=== PATIENT | male | born 1995 | race Caucasian/White ===

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

== ENCOUNTER 2017-08-07 03:26 | Emergency (ER) | payer SELFPAY | END 2017-08-07 04:11 | disposition home or self-care (01) | LOC: ER 03:26 | DX: L98.8 Other specified disorders of the skin and subcutaneous tissue (principal); S90.812A Abrasion, left foot, initial encounter; S90.811A Abrasion, right foot, initial encounter; Z88.1 Allergy status to other antibiotic agents; X58.XXXA Exposure to other specified factors, initial encounter; Y93.89 Activity, other specified; Y92.89 Other specified places as the place of occurrence of the external cause; Y99.8 Other external cause status | CPT/HCPCS: 36415; 86592; 99283 ==

== ENCOUNTER 2017-12-12 16:21 | Emergency (ER) | payer SELFPAY ==
[~2017-12-12] VITALS: Ht 170.2 cm; Wt 59.0 kg
[~2017-12-12 16:21] MED LIST: DOXY100T PO; PERM60CR11 TP
[2017-12-12 16:41] VITALS: BP 129/75
--- NOTE | 2017-12-12 17:21 | PHYS DOC ---
Past Medical History Past Medical History: No Pertinent History Past Surgical History: Other Additional Past Surgical Histo: RT ARM SURG Alcohol Use: Occasionally Drug Use: None Adult General Chief Complaint Chief Complaint: EYE PROBLEMS HPI HPI Patient is a 22 year old Male who presents with left Neck tenderness that she to touch because of a recent lymph node for the last 3 days. Patient also has a left eyebrow red raised bump that is painful for last 3 days. Patient states that he did try to squeeze it to see if there was a pimple but nothing came out. Patient states that it itches in that area. Patient denies a sore throat or cough but states that for the whole month of October every night at 7 PM he 'll began having a fever and vomiting and had body aches or weaknesses. Patient states he is feeling better now though. Patient states that ever since October use been coughing up green mucus. Patient states he does not think he' s been running a fever. Patient has not been taking his temperature at home. Review of Systems Review of Systems Constitutional: Fever or chills for the whole of October.[] Eyes: Denies change in visual acuity, redness, or eye pain [] HENT: Denies nasal congestion or sore throat [] Respiratory: Productive cough. Denies shortness of breath [] Cardiovascular: No additional information not addressed in HPI [] GI: Denies abdominal pain, nausea, vomiting, bloody stools or diarrhea [] : Denies dysuria or hematuria [] Musculoskeletal: Denies back pain or joint pain [] Integument: Red raised, itchy bump to left upper eyebrow. Denies rash or skin lesions [] Neurologic: Denies headache, focal weakness or sensory changes [] All other systems were reviewed and found to be within normal limits, except as documented in this note. Allergies Allergies Allergies Coded Allergies Type Severity Reaction Last Updated Verified bacitracin Allergy Intermediate 12/15/15 Yes neomycin Allergy Intermediate 12/15/15 Yes polymyxin B Allergy Intermediate 12/15/15 Yes Physical Exam Physical Exam Constitutional: Well developed, well nourished, no acute distress, non-toxic appearance. [] HENT: Normocephalic, atraumatic, bilateral external ears normal, oropharynx moist, no oral exudates, nose normal. [] Eyes: PERRLA, EOMI, conjunctiva normal, no discharge. [] Neck: Normal range of motion, no tenderness, supple, no stridor. [] Cardiovascular:Heart rate regular rhythm, no murmur [] Lungs & Thorax: Bilateral breath sounds clear to auscultation [] Abdomen: Bowel sounds normal, soft, no tenderness, no masses, no pulsatile masses. [] Skin: Warm, dry, no erythema, no rash. [] Back: No tenderness, no CVA tenderness. [] Extremities: No tenderness, no cyanosis, no clubbing, ROM intact, no edema. [] Neurologic: Alert and oriented X 3, normal motor function, normal sensory function, no focal deficits noted. [] Psychologic: Affect normal, judgement normal, mood normal. [] Current Patient Data Vital Signs Vital Signs Date Time Temp Pulse Resp B/P (MAP) Pulse Ox O2 Delivery O2 Flow Rate FiO2 12/12/17 16:41 98.1 75 18 129/75 (93) 100 Room Air 98.1 Lab Values Laboratory Tests Test 12/12/17 17:15 White Blood Count 6.8 x10^3/uL (4.0-11.0) Red Blood Count 4.92 x10^6/uL (4.30-5.70) Hemoglobin 15.1 g/dL (13.0-17.5) Hematocrit 42.8 % (39.0-53.0) Mean Corpuscular Volume 87 fL (79-100) Mean Corpuscular Hemoglobin 31 pg (25-35) Mean Corpuscular Hemoglobin Concent 35 g/dL (31-37) Red Cell Distribution Width 13.7 % (11.5-14.5) Platelet Count 257 x10^3/uL (140-400) Neutrophils (%) (Auto) 59 % (31-73) Lymphocytes (%) (Auto) 29 % (24-48) Monocytes (%) (Auto) 9 % (0-9) Eosinophils (%) (Auto) 2 % (0-3) Basophils (%) (Auto) 1 % (0-3) Neutrophils # (Auto) 4.0 x10^3uL (1.8-7.7) Lymphocytes # (Auto) 2.0 x10^3/uL (1.0-4.8) Monocytes # (Auto) 0.6 x10^3/uL (0.0-1.1) Eosinophils # (Auto) 0.1 x10^3/uL (0.0-0.7) Basophils # (Auto) 0.0 x10^3/uL (0.0-0.2) Laboratory Tests 12/12/17 17:15 EKG EKG [] Radiology/Procedures Radiology/Procedures Chest xray Impressions: No acute findings and read by Dr Boland Course & Med Decision Making Course & Med Decision Making Patient is a 22 year old Male who presents with left Neck tenderness that she to touch because of a recent lymph node for the last 3 days. Patient also has a left eyebrow red raised bump that is painful for last 3 days. Patient states that he did try to squeeze it to see if there was a pimple but nothing came out. Patient states that it itches in that area. Patient denies a sore throat or cough but states that for the whole month of October every night at 7 PM he 'll began having a fever and vomiting and had body aches or weaknesses. Patient states he is feeling better now though. Patient states that ever since October use been coughing up green mucus. Patient states he does not think he' s been running a fever. Patient has not been taking his temperature at home. Patient's throat is pink but without exudates. Lungs are clear in upper lobes but diminished in lower lobes. Patient states that he does smoke marijuana and cigarettes. Patient states that he does drink alcohol but then moderation. Patient states he is allergic to Neosporin. I did have Dr. Boland take a look at this patient and she states that to order some bacitracin ointment to put on the left eye bump nodule as it appears to be a folliculitis. Patient is also getting a chest x-ray and a CBC to check for infection. Patient is alert and oriented. Patient speaks in full sentences and in no respiratory distress. Heart Rate regular without murmur. Blood work is unremarkable. Chest x ray was read by Dr Boland and shows no acute findings. Patient is discharged home and to follow up with his primary care as soon as possible. [] Dragon Disclaimer Dragon Disclaimer This electronic medical record was generated, in whole or in part, using a voice recognition dictation system. Departure Departure Impression: Primary Impression: Folliculitis Disposition: HOME, SELF-CARE Condition: STABLE Referrals: NO PCP (PCP) Patient Instructions: Folliculitis Additional Instructions: Follow up with your primary care physician. Use medications as prescribed. Scripts Mupirocin (MUPIROCIN OINTMENT) 22 Gm Oint...g. 1 ABBY TP TID for WOUND CARE, #1 TUBE Prov: ORAL BORREGO APRN 12/12/17 ORAL BORREGO APRN Dec 12, 2017 17:21
[2017-12-12 17:29] LABS: BASO % 1 % (0-3); EOS # 0.1 x10^3/uL (0.0-0.7); EOS % 2 % (0-3); HEMATOCRIT 42.8 % (39.0-53.0); HEMOGLOBIN 15.1 g/dL (13.0-17.5); LYMPH % 29 % (24-48); MEAN CORPUSCULAR HEMOGLOBIN 31 pg (25-35); MEAN CORPUSCULAR HGB CONC 35 g/dL (31-37); MEAN CORPUSCULAR VOLUME 87 fL (79-100); MONO # 0.6 x10^3/uL (0.0-1.1); MONO % 9 % (0-9); NEUT % 59 % (31-73); PLATELET COUNT 257 x10^3/uL (140-400); RED BLOOD COUNT 4.92 x10^6/uL (4.30-5.70); RED CELL DISTRIBUTION WIDTH 13.7 % (11.5-14.5); WHITE BLOOD COUNT 6.8 x10^3/uL (4.0-11.0)
[2017-12-12] MEDS ORDERED: MUPI22OI2 TP (17:48)
--- NOTE | 2017-12-12 18:10 | RAD ---
CHEST PA LATERAL History: GREEN MUCOUS PRODUCTION. Comparison: None. Heart size: Within normal limits. Sophia/mediastinum: Within normal limits Lungs: No focal airspace consolidation. Pleura: No evidence of pleural effusion. Pneumothorax: None visualized Bones: Regional skeleton appears grossly intact. Miscellaneous: None Impression: No acute radiographic findings. Electronically signed by: Larry Virk MD (12/12/2017 6:07 PM) [facility]
[2017-12-12] MEDS ORDERED: MUPIROCIN 2 % TOPICAL CREAM 15GM TUBE. TP ONE (18:15)
== END 2017-12-12 18:01 | disposition home or self-care (01) ==
LOC: ER 16:21
DX: L73.8 Other specified follicular disorders (principal); R50.9 Fever, unspecified; R11.10 Vomiting, unspecified; R22.0 Localized swelling, mass and lump, head; F17.210 Nicotine dependence, cigarettes, uncomplicated; Z88.2 Allergy status to sulfonamides
CPT/HCPCS: 36415; 71046; 85025; 99285-25

== ENCOUNTER 2018-07-06 21:15 | Emergency (ER) | payer SELFPAY ==
[~2018-07-06] VITALS: Ht 170.2 cm; Wt 61.2 kg
[~2018-07-06 21:15] MED LIST changes: +MUPI22OI2 TP
[2018-07-06 21:44] VITALS: BP 120/65
[2018-07-06] MEDS ORDERED: AMOXICILLIN/K CLAV 875/125MG TABLET. PO ONE (22:00)
[2018-07-06] MEDS ORDERED: MUPIROCIN 2 % TOPICAL CREAM 30GM TUBE. TP ONE (22:00)
[2018-07-06] MEDS ORDERED: IBUPROFEN 200 MG TABLET. PO ONE (22:15)
[2018-07-06] MEDS ORDERED: DIPHTH,PERTUSS(ACELL),TET TOX 0.5 ML DISP.SYRIN. VAX IM ONE (22:15)
[2018-07-06] MEDS ORDERED: AMOX1TAB61 PO (22:29)
[2018-07-06] MEDS ORDERED: [UNRECOGNIZED DRUG - CODE] IM (22:29)
[2018-07-06] MEDS ORDERED: MUPI15CR8 TP (22:29)
--- NOTE | 2018-07-06 22:29 | PHYS DOC ---
Past Medical History Past Medical History: No Pertinent History Past Surgical History: Other Additional Past Surgical Histo: RT ARM SURG Alcohol Use: Occasionally Drug Use: None Adult General Chief Complaint Chief Complaint: ANIMAL BITE HPI HPI Patient is a 23 year old [f__sex] who presents with [] Review of Systems Review of Systems Constitutional: Denies fever or chills [] Eyes: Denies change in visual acuity, redness, or eye pain [] HENT: Denies nasal congestion or sore throat [] Respiratory: Denies cough or shortness of breath [] Cardiovascular: No additional information not addressed in HPI [] GI: Denies abdominal pain, nausea, vomiting, bloody stools or diarrhea [] : Denies dysuria or hematuria [] Musculoskeletal: Denies back pain or joint pain [] Integument: Denies rash or skin lesions [] Neurologic: Denies headache, focal weakness or sensory changes [] Endocrine: Denies polyuria or polydipsia [] All other systems were reviewed and found to be within normal limits, except as documented in this note. Current Medications Current Medications Current Medications Medications (Trade) Dose Ordered Sig/Florence Start Time Stop Time Status Last Admin Dose Admin Amoxicillin/ Clavulanate Potassium (Augmentin 875/ 125mg) 1 tab 1X ONCE 07/06/18 22:00 07/06/18 22:01 DC Diphtheria/ Tetanus/Acell Pertussis (Boostrix) 0.5 ml ONCE ONCE 07/06/18 22:15 07/06/18 22:16 DC Ibuprofen (Motrin) 600 mg 1X ONCE 07/06/18 22:15 07/06/18 22:16 DC Mupirocin (Bactroban) 1 cisco 1X ONCE 07/06/18 22:00 07/06/18 22:01 DC Rabies Immune Globulin (Imogam Rabies) 8.2 ml ONCE ONCE 07/06/18 22:30 07/06/18 22:31 Rabies Vaccine Human Diploid Cell (Imovax Rabies 2.5 Unit / ml) 1 ml ONCE ONCE 07/06/18 22:30 07/06/18 22:31 Allergies Allergies Allergies Coded Allergies Type Severity Reaction Last Updated Verified bacitracin Allergy Intermediate 12/15/15 Yes neomycin Allergy Intermediate 12/15/15 Yes polymyxin B Allergy Intermediate 12/15/15 Yes Physical Exam Physical Exam Constitutional: Well developed, well nourished, no acute distress, non-toxic appearance. [] HENT: Normocephalic, atraumatic, bilateral external ears normal, oropharynx moist, no oral exudates, nose normal. [] Eyes: PERRLA, EOMI, conjunctiva normal, no discharge. [] Neck: Normal range of motion, no tenderness, supple, no stridor. [] Cardiovascular:Heart rate regular rhythm, no murmur [] Lungs & Thorax: Bilateral breath sounds clear to auscultation [] Abdomen: Bowel sounds normal, soft, no tenderness, no masses, no pulsatile masses. [] Skin: Warm, dry, no erythema, no rash. [] Back: No tenderness, no CVA tenderness. [] Extremities: No tenderness, no cyanosis, no clubbing, ROM intact, no edema. [] Neurologic: Alert and oriented X 3, normal motor function, normal sensory function, no focal deficits noted. [] Psychologic: Affect normal, judgement normal, mood normal. [] Current Patient Data Vital Signs Vital Signs Date Time Temp Pulse Resp B/P (MAP) Pulse Ox O2 Delivery O2 Flow Rate FiO2 07/06/18 21:44 98.6 103 18 120/65 (83) 100 Room Air 98.6 EKG EKG [] Radiology/Procedures Radiology/Procedures [] Course & Med Decision Making Course & Med Decision Making Pertinent Labs and Imaging studies reviewed. (See chart for details) [] Dragon Disclaimer Dragon Disclaimer This electronic medical record was generated, in whole or in part, using a voice recognition dictation system. Departure Departure Impression: Primary Impression: Dog bite Disposition: 01 HOME, SELF-CARE Condition: STABLE Referrals: NO PCP (PCP) Patient Instructions: Animal Bite, [id number], Rabies Scripts Amoxicillin/Potassium Clav (AUGMENTIN 875-125 TABLET) 1 Each Tablet 1 TAB PO BID, #10 TAB Prov: ROWAN PHILLIPS DO 07/06/18 Mupirocin Calcium (MUPIROCIN CREAM) 15 Gm Cream..g. 1 CISCO TP TID for 7 Days, #1 TUBE Prov: ROWAN PHILLIPS DO 07/06/18 Rabies Vacc, Human Diploid/Pf (IMOVAX RABIES VACCINE) 2.5 Unit Vial 2.5 UNIT IM UD, #3 EACH 1ml deltoid IM on 07/09/18 (day 3), on 07/13/18 (day 7), and on 07/20/18 (day 14). Prov: ROWAN PHILLIPS DO 07/06/18 Problem Qualifiers Primary Impression: Dog bite Encounter type: initial encounter Qualified Codes: W54.0XXA - Bitten by dog, initial encounter ROWAN PHILLIPS DO July 06, 2018 22:29
[2018-07-06] MEDS ORDERED: RABIES IMMUNE GLOBULIN PF 150 UNIT/ML 10ML VIAL. VAX IM ONE (22:30)
[2018-07-06] MEDS ORDERED: RABIES VIRUS VACC PF 2.5 UNIT / 1 ML VIAL. VAX IM ONE (22:30)
== END 2018-07-06 23:11 | disposition home or self-care (01) ==
LOC: ER 21:15
DX: S41.051A Open bite of right shoulder, initial encounter (principal); Z88.1 Allergy status to other antibiotic agents; W54.0XXA Bitten by dog, initial encounter; Y93.89 Activity, other specified; Y92.89 Other specified places as the place of occurrence of the external cause; Y99.8 Other external cause status
CPT/HCPCS: 90375; 90471; 90675; 90715; 96372; 99284

== ENCOUNTER 2018-08-15 23:31 | Emergency (ER) | payer SELFPAY ==
[~2018-08-15] VITALS: Ht 160 cm; Wt 61.2 kg
[2018-08-15 23:31] VITALS: BP 132/74
[~2018-08-15 23:31] MED LIST changes: +AMOX1TAB61 PO; +MUPI15CR8 TP; +[UNRECOGNIZED DRUG - CODE] IM
[2018-08-15] MEDS ORDERED: NEOMY/BACITR/POLYMYXIN OINT PACKET. TP ONE ×2 (23:41→23:45)
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
== END 2018-08-15 23:37 | disposition home or self-care (01) ==
LOC: ER 23:31
DX: S61.011A Laceration without foreign body of right thumb without damage to nail, initial encounter (principal); F10.929 Alcohol use, unspecified with intoxication, unspecified; Y90.9 Presence of alcohol in blood, level not specified; F12.90 Cannabis use, unspecified, uncomplicated; Z88.1 Allergy status to other antibiotic agents; W26.0XXA Contact with knife, initial encounter; Y93.89 Activity, other specified; Y92.89 Other specified places as the place of occurrence of the external cause; Y99.8 Other external cause status
CPT/HCPCS: 99282; 99283

== ENCOUNTER 2019-04-25 18:59 | Emergency (ER) | payer SELFPAY ==
[~2019-04-25] VITALS: Ht 165.1 cm; Wt 59.0 kg
[2019-04-25 19:29] VITALS: BP 114/74
[2019-04-25] MEDS ORDERED: PRED-220 PO (19:37)
[2019-04-25] MEDS ORDERED: PERM60CR12 TP (19:37)
[2019-04-25] MEDS ORDERED: FAMO20TA5 PO (19:37)
[2019-04-25] MEDS ORDERED: DIPH25CA58 PO (19:37)
--- NOTE | 2019-04-25 19:38 | PHYS DOC ---
Past Medical History Past Medical History: No Pertinent History (MAGALI EL APRN) Past Surgical History: Other Additional Past Surgical Histo: RT ARM SURG (MAGALI EL APRN) Smoking Status: Never Smoker Alcohol Use: Occasionally Drug Use: None (MAGALI EL APRN) Attending Signature I have participated in the care of this patient and I have reviewed and agree with all pertinent clinical information above including history, exam, and recommendations. (LILY ENGLISH MD) Adult General Chief Complaint Chief Complaint: SKIN PROBLEM HPI HPI Patient is a 24 year old medical presents to the ED today complaining of a rash pruritic in nature that began yesterday. Patient does not recall any known cause for this rash but mentions he got a new T-shirt on line that he tried on . (MAGALI EL APRN) Review of Systems Review of Systems Constitutional: Denies fever or chills [] Musculoskeletal: Denies back pain or joint pain [] Integument: reports rash Neurologic: Denies headache, focal weakness or sensory changes [] All other systems were reviewed and found to be within normal limits, except as documented in this note. (MAGALI EL APRN) Allergies Allergies Allergies Coded Allergies Type Severity Reaction Last Updated Verified bacitracin Allergy Intermediate 12/15/15 Yes neomycin Allergy Intermediate 12/15/15 Yes polymyxin B Allergy Intermediate 12/15/15 Yes (LILY ENGLISH MD) Physical Exam Physical Exam Constitutional: Well developed, well nourished, no acute distress, non-toxic appearance. [] Skin: Warm, dry, moderate amount of erythematous papular rash on patient's bilateral upper extremities, chest, back, trace amount of similar rash on the right thigh Back: No tenderness, no CVA tenderness. [] Extremities: No tenderness, no cyanosis, no clubbing, ROM intact, no edema. [] Neurologic: Alert and oriented X 3, normal motor function, normal sensory function, no focal deficits noted. [] Psychologic: Affect normal, judgement normal, mood normal. [] (MAGALI EL APRN) Current Patient Data Vital Signs Vital Signs Date Time Temp Pulse Resp B/P (MAP) Pulse Ox O2 Delivery O2 Flow Rate FiO2 04/25/19 19:29 98.6 74 16 114/74 (87) 95 Room Air 98.6 (LILY ENGLISH MD) EKG EKG [] (MAGALI EL APRN) Radiology/Procedures Radiology/Procedures [] (MAGALI EL APRN) Course & Med Decision Making Course & Med Decision Making Pertinent Labs and Imaging studies reviewed. (See chart for details) This is a 24-year-old male patient presenting to the ED today with rash, no known cause though he tried a new t.shirt on which is three days ago. Scabies is one of my differential diagnosis. D/c with permethrin, prednisone, benadryl and famotidine. F/u with substitute bus driver in 2-4 weeks. (MAGALI EL APRN) Dragon Disclaimer Dragon Disclaimer This electronic medical record was generated, in whole or in part, using a voice recognition dictation system. (MAGALI EL APRN) Departure Departure Impression: Primary Impression: Rash Disposition: HOME, SELF-CARE Condition: STABLE Referrals: NO PCP (PCP) ANALI CARRASQUILLO MD follow up in 2-4 weeks Patient Instructions: Rash, [id number] Additional Instructions: You were seen for a rash. Please use the medications prescribed as ordered. Foll ow up with the provided substitute bus driver in 2-4 weeks Scripts Diphenhydramine Hcl (BENADRYL) 25 Mg Capsule 1 CAP PO Q6HRS, #30 CAP 0 Refills Prov: MAGALI EL APRN 04/25/19 Famotidine (FAMOTIDINE) 20 Mg Tablet 20 MG PO DAILY, #7 TAB Prov: MAGALI EL APRN 04/25/19 Prednisone (PREDNISONE ) 10 Mg Tablet 10 MG PO UD for PREDNISONE TAPER, #39 TAB 0 Refills Take 3 tablets by mouth twice a day for 3 days, then take 2 tablets by mouth twice a day for 3 days, then take 1 tablet by mouth twice a day for 3 days, then take 1 tablet by mouth daily x 3 days, then stop. Prov: MAGALI EL APRN 04/25/19 Permethrin (PERMETHRIN) 60 Gm Cream..g. 1 ABBY TP ONCE, #60 GM 1 Refill repeat in 1 week Prov: MAGALI EL APRN 04/25/19 MAGALI EL APRN Apr 25, 2019 19:37 LILY ENGLISH MD Apr 25, 2019 20:08
== END 2019-04-25 19:48 | disposition home or self-care (01) ==
LOC: ER 18:59
DX: R21 Rash and other nonspecific skin eruption (principal); L29.9 Pruritus, unspecified; Z98.890 Other specified postprocedural states; Z88.1 Allergy status to other antibiotic agents
CPT/HCPCS: 99283